=== PATIENT | female | born 1955 | race Caucasian/White ===

== ENCOUNTER 2016-11-06 06:56 | Emergency (ER) | payer BC ==
[~2016-11-06] VITALS: Ht 167.6 cm; Wt 99.8 kg
[2016-11-06] MEDS ORDERED: SODIUM CHLORIDE 0.9% 1,000 ML IV ONE (07:47)
[2016-11-06] MEDS ORDERED: TRIAMCINOLONE ACET 0.1% TOPICAL CREAM 15GM TOP ONE (08:00)
[2016-11-06] MEDS ORDERED: methylPREDNISolone SOD SUCC 125 MG/2 ML VL IV ONE (08:00)
[2016-11-06 08:47] LABS: Basophils # (auto) 0 uL; Basophils % (auto) 0.2 % (0.0-2.0); DEFINITIVE VIEW TRANSMISSION; Eosinophils # (auto) 0 uL; Hematocrit 34.7 % (36.0-46.0); Hemoglobin 10.6 g/dL (12.2-16.2); Lymphocytes # (auto) 0.6 uL; Lymphocytes % (auto) 6.5 % (10.0-50.0); Mean Corpuscular Hemoglobin 22.8 pg (28.0-32.0); Mean Corpuscular Hgb Conc. 30.5 g/dL (32.0-36.0); Mean Corpuscular Volume 74.7 fL (80.0-100.0); Monocytes # (auto) 0.3 uL; Monocytes % (auto) 3.5 % (0.0-12.0); Neutrophils # (auto) 8.3 uL; Neutrophils % (auto) 89.8 % (37.0-80.0); Platelet Count (auto) 464 10^3/uL (140-450); Red Cell Distribution Width 17.7 % (11.6-16.0); White Blood Cell 9.3 10^3/uL (4.4-10.8)
[2016-11-06] MEDS ORDERED: diphenhdrAMINE HCL 50 MG/1 ML VL IV ONE (09:00)
[2016-11-06 09:03] LABS: Urine Bilirubin Negative (Negative); Urine Blood Negative /uL (Negative); Urine Color Yellow (Yellow); Urine Glucose Normal (Normal); Urine Ketone Negative (Negative); Urine Nitrite Negative (Negative); Urine RBC <1 /hpf (0 - 4); Urine Urobilinogen Normal (Negative)
[2016-11-06 09:08] LABS: BUN/Creatinine Ratio 17.8; Calcium 9.1 mg/dL (8.5-10.1); Magnesium 2.2 mg/dL (1.6-2.6); Potassium 4.3 mmol/L (3.5-5.1)
[2016-11-06 11:58] VITALS: BP 144/74
== END 2016-11-06 12:09 | disposition home or self-care (01) ==
LOC: ER 06:59
DX: L25.9 Unspecified contact dermatitis, unspecified cause (principal); L50.9 Urticaria, unspecified; D50.9 Iron deficiency anemia, unspecified; Z88.1 Allergy status to other antibiotic agents
CPT/HCPCS: 36415; 80048; 81001; 83735; 84443; 85025; 85049; 96361; 96374; 96375; 99285; J1200; J2930; J7030

== ENCOUNTER → 2017-06-29 | Outpatient (CLI) | payer BC ==
[~2017-06-29] VITALS: Ht 167.6 cm; Wt 99.8 kg
== END | disposition home or self-care (01) ==
LOC: Rad HDHVI 09:46
PROVIDERS: ATTEND Internal Medicine Cardiovascular Disease
DX: E11.9 Type 2 diabetes mellitus without complications (principal); E03.9 Hypothyroidism, unspecified; E55.9 Vitamin D deficiency, unspecified; R00.2 Palpitations
CPT/HCPCS: 36415; 78452; 82306; 83036; 84443; 93017; 96374; A9500

== ENCOUNTER → 2017-07-08 | Outpatient (CLI) | payer BC | END | disposition home or self-care (01) | LOC: Rad HDHVI 13:37 | PROVIDERS: ATTEND Internal Medicine Cardiovascular Disease | DX: R06.02 Shortness of breath (principal); E78.00 Pure hypercholesterolemia, unspecified | CPT/HCPCS: 93306 ==

== ENCOUNTER → 2018-04-13 | Outpatient (CLI) | payer BC ==
[2018-04-13 16:13] LABS: Basophils # (auto) 0.1 uL; Eosinophils # (auto) 0.5 uL; Lymphocytes # (auto) 0.8 uL; Mean Corpuscular Hemoglobin 26.8 pg (28.0-32.0); Mean Corpuscular Hgb Conc. 32.5 g/dL (32.0-36.0); Monocytes # (auto) 0.3 uL; Monocytes % (auto) 7.9 % (0.0-12.0); Nucleated Red Blood Cells % 0.1 %; Red Cell Distribution Width 17.8 % (11.8-14.3)
[2018-04-13 16:16] LABS: Basophils % (auto) 2.3 % (0.0-2.0); Eosinophils % (auto) 11.1 % (0.0-7.0); Hematocrit 36.5 % (36.0-46.0); Hemoglobin 11.9 g/dL (12.2-16.2); Lymphocytes % (auto) 17.3 % (10.0-50.0); Mean Corpuscular Volume 82.3 fL (80.0-100.0); Neutrophils # (auto) 2.7 uL; Neutrophils % (auto) 61.4 % (37.0-80.0); Platelet Count (auto) 368 10^3/uL (140-450); Red Blood Cells 4.43 10^6/uL (4.0-5.20); White Blood Cell 4.4 10^3/uL (4.4-10.8)
[2018-04-13 16:17] LABS: Albumin 3.6 g/dL (3.4-5.0); BUN/Creatinine Ratio 14.6; Bilirubin, Total 0.4 mg/dL (0.2-1.0); Potassium 4.1 mmol/L (3.5-5.1); Total Protein 7.2 g/dL (6.4-8.2)
[2018-04-13 16:18] LABS: Free T4 (Free Thyroxine) 1.3 ng/dL (0.89-1.76)
== END | disposition home or self-care (01) ==
LOC: LAB 13:17
PROVIDERS: ATTEND Internal Medicine Cardiovascular Disease
DX: Z00.01 Encounter for general adult medical examination with abnormal findings (principal); E03.9 Hypothyroidism, unspecified; E11.9 Type 2 diabetes mellitus without complications; E55.9 Vitamin D deficiency, unspecified; R70.0 Elevated erythrocyte sedimentation rate; D51.9 Vitamin B12 deficiency anemia, unspecified; E78.00 Pure hypercholesterolemia, unspecified
CPT/HCPCS: 36415; 80053; 80061; 82306; 82607; 83036; 84439; 84443; 85025; 85652

== ENCOUNTER 2019-12-04 12:12 | Emergency (ER) | payer BC, MEDICARE, OTHER ==
[~2019-12-04] VITALS: Ht 167.6 cm; Wt 72.6 kg
[2019-12-04] MEDS ORDERED: MORPHINE SULFATE 4 MG/ML SYR/VIAL IV ONE (13:30)
[2019-12-04] MEDS ORDERED: ONDANSETRON HCL 4 MG/2 ML VIAL IV ONE (13:30)
[2019-12-04 15:54] LABS: Basophils # (auto) 0.1 uL; Eosinophils # (auto) 0.6 uL; Monocytes # (auto) 0.6 uL; Platelet Count (auto) 466 10^3/uL (140-450); White Blood Cell 7.6 10^3/uL (4.4-10.8)
[2019-12-04 15:56] LABS: Basophils % (auto) 0.9 % (0.0-2.0); Eosinophils % (auto) 7.4 % (0.0-7.0); Hematocrit 32.8 % (36.0-46.0); Hemoglobin 10.5 g/dL (12.2-16.2); Lymphocytes % (auto) 13.2 % (10.0-50.0); Mean Corpuscular Hemoglobin 26.5 pg (28.0-32.0); Mean Corpuscular Volume 82.9 fL (80.0-100.0); Neutrophils # (auto) 5.4 uL; Neutrophils % (auto) 70.5 % (37.0-80.0); Red Blood Cells 3.95 10^6/uL (4.0-5.20); Red Cell Distribution Width 19.5 % (11.8-14.3)
[2019-12-04 16:11] LABS: INR 1.14 (0.9-1.15); Partial Thromboplastin Time 29.5 sec (23.64-32.05)
[2019-12-04 16:25] LABS: Alanine Aminotransferase 22 U/L (13-56); Albumin 2.6 g/dL (3.4-5.0); Anion Gap 5 (5-15); Blood Urea Nitrogen 7 mg/dL (7-18); Calcium 9.2 mg/dL (8.5-10.1); Carbon Dioxide 26 mmol/L (21-32); Chloride 110 mmol/L (98-107); Glucose 107 mg/dL (74-106); Potassium 3.4 mmol/L (3.5-5.1); Sodium 141 mmol/L (136-145)
[2019-12-04 16:30] LABS: Alkaline Phosphatase 68 U/L (45-117); Aspartate Aminotransferase 34 U/L (15-37); BUN/Creatinine Ratio 6.1; Bilirubin, Total 0.4 mg/dL (0.2-1.0); GFR African American 61 mL/min; GFR Non-African American 50 mL/min; Total Protein 6.7 g/dL (6.4-8.2)
[2019-12-04 18:31] VITALS: BP 134/79
== END 2019-12-04 19:16 | disposition home or self-care (01) ==
LOC: EDBD 12:12 → EDSEX 12:12 → ER 12:12
DX: R53.1 Weakness (principal); R06.02 Shortness of breath; R19.7 Diarrhea, unspecified
CPT/HCPCS: 36415; 71045; 80053; 83880; 84484; 85025; 85610; 85730

== ENCOUNTER 2020-03-11 15:20 | Inpatient (IN) | payer OTHER ==
[~2020-03-11] VITALS: Ht 167.6 cm; Wt 88.5 kg
[2020-03-11] MEDS: SODIUM CHLORIDE 0.9% 1,000 ML IV SCH (09:51)
[2020-03-11 16:19] LABS: Basophils # (auto) 0.1 10 ^3/uL (0-0.2); Eosinophils # (auto) 0.4 10 ^3/uL (0-0.8); Monocytes # (auto) 1.2 10 ^3/uL (0-1.3)
[2020-03-11 16:20] LABS: Basophils % (auto) 0.4 % (0.0-2.0); Eosinophils % (auto) 3.8 % (0.0-7.0); Hematocrit 36.1 % (36.0-46.0); Hemoglobin 11.7 g/dL (12.2-16.2); Lymphocytes # (auto) 1.4 10 ^3/uL (0.4-5.4); Lymphocytes % (auto) 11.7 % (10.0-50.0); Mean Corpuscular Hemoglobin 25.1 pg (28.0-32.0); Mean Corpuscular Hgb Conc. 32.3 g/dL (32.0-36.0); Mean Corpuscular Volume 77.7 fL (80.0-100.0); Monocytes % (auto) 9.8 % (0.0-12.0); Neutrophils # (auto) 8.8 10 ^3/uL (1.6-8.6); Neutrophils % (auto) 74.3 % (37.0-80.0); Platelet Count (auto) 723 10^3/uL (140-450); Red Blood Cells 4.65 10^6/uL (4.0-5.20); Red Cell Distribution Width 17.6 % (11.8-14.3); White Blood Cell 11.8 10^3/uL (4.4-10.8)
[2020-03-11 16:26] LABS: INR 1.14 (0.9-1.15); Partial Thromboplastin Time 27.6 sec (23.64-32.05)
[2020-03-11 16:30] LABS: Anion Gap 7 (5-15); Blood Urea Nitrogen 18 mg/dL (7-18); Calcium 8.8 mg/dL (8.5-10.1); Carbon Dioxide 23 mmol/L (21-32); Chloride 101 mmol/L (98-107); Glucose 87 mg/dL (74-106); Potassium 4.6 mmol/L (3.5-5.1); Sodium 131 mmol/L (136-145)
[2020-03-11 16:40] LABS: Alanine Aminotransferase 12 U/L (13-56); Alkaline Phosphatase 122 U/L (45-117); Aspartate Aminotransferase 14 U/L (15-37); BUN/Creatinine Ratio 8.7; Bilirubin, Total 0.4 mg/dL (0.2-1.0); GFR African American 31 mL/min; GFR Non-African American 26 mL/min; Total Protein 6.9 g/dL (6.4-8.2)
[2020-03-11] MEDS ORDERED: SODIUM CHLORIDE 0.9% 1,000 ML IV ONE ×2 (17:14)
[2020-03-11] MEDS ORDERED: cefTRIAXone 1GM/50ML D5W 50 ML IV ONE (18:15)
[2020-03-11] MEDS ORDERED: metroNIDAZOLE 500MG/100ML 100 ML IV ONE (18:15)
[2020-03-11 18:31] LABS: BUN/Creatinine Ratio 9.4; Calcium 8.1 mg/dL (8.5-10.1); Potassium 4.7 mmol/L (3.5-5.1)
[2020-03-11] MEDS ORDERED: NITROGLYCERIN 0.4 MG SL TAB SL PRN (19:15)
[2020-03-11] MEDS ORDERED: MORPHINE SULF INJ 2 MG/ML SYRINGE 1ML IV PRN (19:15)
[2020-03-11] MEDS: metroNIDAZOLE 500MG/100ML 100 ML IV SCH (21:27)
[2020-03-11 21:28] LABS: Urine Bacteria MANY /hpf (None Seen); Urine Blood Negative /uL (Negative); Urine Hyaline Cast FEW /lpf (0 - 2); Urine Mucus FEW (None Seen); Urine Specific Gravity 1.009 (1.001-1.035); Urine WBC 26 /hpf (0 - 5); Urine WBC Clumps PRESENT /hpf (None Seen)
[2020-03-11 22:30] VITALS: BP 95/69
[2020-03-11] MEDS: CIPROFLOXACIN HCL 500 MG TAB PO SCH (23:20)
[2020-03-11] MEDS: HEPARIN SODIUM (PORCINE) 5000 UNITS/ML 1ML VIAL SC SCH (23:20)
[2020-03-12] MEDS ORDERED: LEVO100T8 PO (00:26)
[2020-03-12] MEDS ORDERED: DICL50TA4 PO (00:26)
[2020-03-12] MEDS ORDERED: CYCL-611 PO (00:26)
[2020-03-12] MEDS ORDERED: TEMA15CA91 PO (00:26)
[2020-03-12] MEDS ORDERED: FLUO-125 PO (00:26)
[2020-03-12] MEDS ORDERED: FLUO40CA (00:26)
[2020-03-12 02:00] VITALS: BP 138/69
[2020-03-12] MEDS: metroNIDAZOLE 500MG/100ML 100 ML IV SCH ×2 (03:29→12:19)
[2020-03-12 05:29] VITALS: BP 104/51
[2020-03-12 08:00] VITALS: BP 114/53
[2020-03-12] MEDS: SODIUM CHLORIDE 0.9% 1,000 ML IV SCH ×2 (09:47→15:08)
[2020-03-12] MEDS: CIPROFLOXACIN HCL 500 MG TAB PO SCH ×2 (09:47→22:31)
[2020-03-12] MEDS: HEPARIN SODIUM (PORCINE) 5000 UNITS/ML 1ML VIAL SC SCH ×2 (09:48→22:31)
[2020-03-12] MEDS ORDERED: FAM20T PO (10:34)
[2020-03-12] MEDS ORDERED: PRED20TA2 PO (10:34)
[2020-03-12] MEDS ORDERED: MESA400C PO (10:34)
[2020-03-12 13:00] VITALS: BP 113/56
[2020-03-12 19:13] LABS: Basophils # (auto) 0 10 ^3/uL (0-0.2); Basophils % (auto) 0.4 % (0.0-2.0); Eosinophils # (auto) 0.4 10 ^3/uL (0-0.8); Eosinophils % (auto) 4.7 % (0.0-7.0); Hematocrit 31.4 % (36.0-46.0); Hemoglobin 10.2 g/dL (12.2-16.2); Lymphocytes % (auto) 12.4 % (10.0-50.0); Mean Corpuscular Hemoglobin 25.5 pg (28.0-32.0); Mean Corpuscular Hgb Conc. 32.6 g/dL (32.0-36.0); Mean Corpuscular Volume 78.2 fL (80.0-100.0); Monocytes # (auto) 1.1 10 ^3/uL (0-1.3); Monocytes % (auto) 13.1 % (0.0-12.0); Neutrophils # (auto) 5.8 10 ^3/uL (1.6-8.6); Neutrophils % (auto) 69.4 % (37.0-80.0); Platelet Count (auto) 713 10^3/uL (140-450); Red Blood Cells 4.01 10^6/uL (4.0-5.20); Red Cell Distribution Width 17.8 % (11.8-14.3); White Blood Cell 8.3 10^3/uL (4.4-10.8)
[2020-03-12 19:26] LABS: BUN/Creatinine Ratio 8.9; Calcium 8.5 mg/dL (8.5-10.1); Potassium 4.7 mmol/L (3.5-5.1)
[2020-03-12 22:23] VITALS: BP 122/55
[2020-03-12] MEDS: metroNIDAZOLE 500 MG TAB PO SCH (22:30)
[2020-03-12] MEDS: MESALAMINE 400mg Delayed Release Cap PO SCH (22:44)
[2020-03-13 05:00] VITALS: BP 117/64
[2020-03-13] MEDS: metroNIDAZOLE 500 MG TAB PO SCH ×2 (07:30→12:03)
[2020-03-13 08:42] VITALS: BP 119/54
[2020-03-13] MEDS ORDERED: predniSONE 20 MG TAB PO SCH (10:00)
[2020-03-13] MEDS: HEPARIN SODIUM (PORCINE) 5000 UNITS/ML 1ML VIAL SC SCH (10:30)
[2020-03-13] MEDS: CIPROFLOXACIN HCL 500 MG TAB PO SCH (10:30)
[2020-03-13] MEDS: MESALAMINE 400mg Delayed Release Cap PO SCH (10:31)
[2020-03-13] MEDS: SODIUM CHLORIDE 0.9% 1,000 ML IV SCH ×2 (10:31→11:08)
[2020-03-13 12:56] VITALS: BP 119/47
[2020-03-13 13:31] VITALS: BP 119/47
== END 2020-03-13 15:30 | disposition home health service (06) | DRG 385 ==
LOC: EDBD 15:20 → EDUNIT# 15:20 → ER 15:20 → TELE 15:21 → TELE-EAST 22:19 → TELE-CENTR 03-12 18:25
PROVIDERS: ADMIT Hospitalist; ATTEND Hospitalist
DX: K51.90 Ulcerative colitis, unspecified, without complications (principal); E43 Unspecified severe protein-calorie malnutrition; E87.1 Hypo-osmolality and hyponatremia; N17.9 Acute kidney failure, unspecified; D50.9 Iron deficiency anemia, unspecified; E86.0 Dehydration; D72.829 Elevated white blood cell count, unspecified; Z68.31 Body mass index [BMI] 31.0-31.9, adult; I10 Essential (primary) hypertension; Z20.828 Contact with and (suspected) exposure to other viral communicable diseases; J20.9 Acute bronchitis, unspecified; Z88.1 Allergy status to other antibiotic agents; Z88.2 Allergy status to sulfonamides
CPT/HCPCS: 36415; 70450; 71045; 71250; 74176; 80048; 80053; 81001; 82728; 84484; 85025; 85048; 85610; 85730; 87045; 87070; 87427; 87804; 87880; 93005; 93886; 96361; 96365; 99291; G0378; J0696; J3490

== ENCOUNTER 2020-04-12 03:39 | Emergency (ER) | payer OTHER ==
[~2020-04-12] VITALS: Ht 167.6 cm; Wt 83.9 kg
[~2020-04-12 03:39] MED LIST: CYCL-611 PO; FAM20T PO; FLUO40CA; LEVO100T8 PO; MESA400C PO; PRED20TA2 PO; TEMA15CA91 PO
[2020-04-12 06:14] LABS: Eosinophils # (auto) 0.3 10 ^3/uL (0-0.8); Hemoglobin 10.7 g/dL (12.2-16.2); Lymphocytes # (auto) 0.7 10 ^3/uL (0.4-5.4); Mean Corpuscular Hemoglobin 26.5 pg (28.0-32.0)
[2020-04-12 06:17] LABS: Basophils # (auto) 0.1 10 ^3/uL (0-0.2); Basophils % (auto) 0.7 % (0.0-2.0); Hematocrit 33.2 % (36.0-46.0); Lymphocytes % (auto) 9.5 % (10.0-50.0); Mean Corpuscular Hgb Conc. 32.1 g/dL (32.0-36.0); Mean Corpuscular Volume 82.5 fL (80.0-100.0); Monocytes # (auto) 0.5 10 ^3/uL (0-1.3); Monocytes % (auto) 7.6 % (0.0-12.0); Neutrophils # (auto) 5.5 10 ^3/uL (1.6-8.6); Neutrophils % (auto) 78.2 % (37.0-80.0); Platelet Count (auto) 272 10^3/uL (140-450); Red Blood Cells 4.03 10^6/uL (4.0-5.20); White Blood Cell 7.1 10^3/uL (4.4-10.8)
[2020-04-12 06:18] LABS: Red Cell Distribution Width 20.8 % (11.8-14.3)
[2020-04-12 06:32] LABS: INR 1.06 (0.9-1.15); Partial Thromboplastin Time 31.6 sec (23.64-32.05)
[2020-04-12 06:34] LABS: Chloride 98 mmol/L (98-107); Potassium 3.7 mmol/L (3.5-5.1); Sodium 132 mmol/L (136-145)
[2020-04-12 06:45] LABS: Alanine Aminotransferase 18 U/L (13-56); Albumin 2.5 g/dL (3.4-5.0); Alkaline Phosphatase 66 U/L (45-117); Anion Gap 6 (5-15); Aspartate Aminotransferase 15 U/L (15-37); BUN/Creatinine Ratio 14.6; Bilirubin, Total 0.5 mg/dL (0.2-1.0); Blood Urea Nitrogen 15 mg/dL (7-18); Calcium 8.3 mg/dL (8.5-10.1); Carbon Dioxide 28 mmol/L (21-32); GFR African American 69 mL/min; GFR Non-African American 57 mL/min; Glucose 107 mg/dL (74-106); Magnesium 2.1 mg/dL (1.6-2.6)
[2020-04-12] MEDS ORDERED: SPIRONOLACTONE 25 MG TAB PO ONE (08:45)
[2020-04-12] MEDS ORDERED: FUROSEMIDE 40 MG/4 ML VIAL IV ONE (08:45)
[2020-04-12 17:10] VITALS: BP 95/50
== END 2020-04-12 17:51 | disposition home or self-care (01) ==
LOC: EDBD 03:39 → ER 03:39
DX: S00.03XA Contusion of scalp, initial encounter (principal); R51 Headache; Z20.828 Contact with and (suspected) exposure to other viral communicable diseases; R42 Dizziness and giddiness; I95.0 Idiopathic hypotension; M47.22 Other spondylosis with radiculopathy, cervical region; K51.90 Ulcerative colitis, unspecified, without complications; M62.838 Other muscle spasm; E44.0 Moderate protein-calorie malnutrition; F41.9 Anxiety disorder, unspecified; I10 Essential (primary) hypertension; Z68.29 Body mass index [BMI] 29.0-29.9, adult; Z88.1 Allergy status to other antibiotic agents; Z88.2 Allergy status to sulfonamides; Z79.899 Other long term (current) drug therapy; W18.39XA Other fall on same level, initial encounter; Y93.89 Activity, other specified; Y92.89 Other specified places as the place of occurrence of the external cause; Y99.8 Other external cause status
CPT/HCPCS: 36415; 70450; 71045; 72125; 80053; 83735; 83880; 84443; 84484; 85025; 85610; 85730; 93005; 96374; 99285; C9803; J1940; U0003